=== PATIENT | male | born 1940 | race Caucasian/White ===

== ENCOUNTER → 2017-06-23 | Day surgery (SDC) | payer MEDICARE, OTHER ==
[~2017-06-23] VITALS: Ht 172.7 cm; Wt 84.1 kg
[~2017-06-23] MED LIST: Amiodarone 50 mg/mL 3 mL Inj IV SCH; Amiodarone 50 mg/mL 3 mL Inj ONE; Atropine 1 mg/10 mL (Code) Syringe ONE; DOPamine 800 mg/250 mL D5W Premix IV ONE; EPINEPHrine 0.1 mg/mL 10 mL Syringe ONE; Heparin 1,000 Unit/mL 10 mL Inj ONE; Heparin 1,000 Units/500 mL NS Premix IV ONE; Heparin 10,000 Unit/1,000 mL NS Premix IV ONE; Heparin 25,000 Unit/500 mL 0.45% NS Premix IV ONE; Heparin 25K Unit/500mL 0.45 NS 25,000 UNIT in IV Premix 1 EACH IV ONE; Lidocaine 2% 20 mg/mL 5 mL Cardiac Syringe IVPUSH ONE; Nitroglycerin 50,000 mcg/250 mL D5W Premix IV ONE; Norepinephrine 8,000 mCg/250 mL D5W Premix IV SCH; Ondansetron 2 mg/mL 2 mL Inj IVPUSH ONE; Phenylephrine/NS-PF 100 mCg/mL 5 mL Syringe IVPUSH ONE; Propofol 10 mg/mL 20 mL Inj IVPUSH ONE; fentaNYL-PF 50 mCg/mL 2 mL Inj ONE
[2017-06-23 16:54] VITALS: BP 113/70; PULSE 47; RESP 18; O2SAT 93
--- NOTE | 2017-06-23 16:59 | ED.REPORT ---
HPI-General Illness Date of Service Jun 23, 2017 ED Provider: Dr. Valiente The pt is a 77 y/o male with a hx of HTN and polio as a child who presents to the ED via EMS complaining of burning pain in the lower part of his chest that radiates to the upper part of his chest, onset an hour and a half ago. He currently rates the pain 1/10 in severity and states it improves when he burps. En route, the pt was given 600 of Plavix, bolus of heparin, sublingual nitroglycerin and aspirin. Pain was worse earlier, better after nitro. Pain does not radiate through to his back. Associated sx include generalized weakness and mild diaphoresis. He had also lost consciousness prior to arrival. He denies hitting his head. He also denies vision changes, headache, neck pain, unilateral weakness and numbness and hx of MA. No other complaints at this time. Nursing Notes Stated Complaint: STEMI Chief Complaint: Dysrhythmia/Cardiac Nursing Notes Reviewed: Yes Allergies: Coded Allergies: atenolol (Verified Allergy, Mild, rash, 06/23/17) General Time Seen by MD: 16:58 Chief Complaint Chest pain Hx Obtained From: Patient Arrived By: Ambulance Sudden in Onset?: Yes Onset Occurred: 1 - 4 hours ago Symptom Duration: Since onset Quality: Painful Severity: Current: Pain level 1 out of 10 Severity: Maximum: Moderate Recent Healthcare: No recent doctor visit Similar Sx Previous: No Past Medical History Past Medical History HTN polio as a child Past Surgical History none reported Family History Denies pertinent family history. Smoking History Former Smoker (quit 7 years ago) Social History Alcohol Use: "Social" Drug Use: Denies drug use Ambulatory Status Independent Review of Systems Denies: unilateral weakness and numbness Full Review of Systems Constitutional: Reports: Weakness - generalized, Denies: Fever Eyes: Denies: Blurred bilateral, Diplopia Ears / Nose / Throat: Denies: Throat swelling, Voice change Respiratory: Denies: Shortness of breath Cardiovascular: Reports: Chest pain GI: Denies: Abdominal pain Male: Denies Incontinence Musculoskeletal: Denies: Neck pain Skin: Reports Diaphoresis (mild) Allergy / Immune: Denies: Itching Neurologic: Reports: Change LOC, Denies: Headache, Vision change Psychiatric: Denies: Change mental status, Confusion Complete sys rev & neg: except as marked. Physical Exam Nursing note and vitals reviewed. Constitutional: Well-developed, well-nourished. Not diaphoretic. Head: Normocephalic and atraumatic. Mouth/Throat: Oropharynx is clear and moist. No oropharyngeal exudate. Eyes: EOM are normal. Pupils are equal, round, and reactive to light. Neck: Supple, no tracheal deviation. Cardiovascular: Bradycardia,regular rhythm. Equal and intact distal pulses throughout. Pulmonary/Chest: Effort normal and breath sounds normal. No respiratory distress. Abdominal: Soft. No distension. There is no tenderness, rebound, or guarding. Bowel sounds present. Musculoskeletal: Range of motion grossly intact, moving all extremities. No edema or tenderness appreciated. Neurological: AOx3. Grossly nonfocal exam. Strength and sensation intact and equal to bilateral upper and lower extremities. Right sided facial droop baseline per the pt's report. Skin: Warm and dry, no rashes or pallor appreciated. Psychiatric: Appropriate mood and affect. Behavior appears normal. Vital Signs Vital Signs Date Time Temp Pulse Resp B/P Pulse Ox O2 Delivery O2 Flow Rate FiO2 06/23/17 16:54 36.0 47 18 113/70 93 Room Air 5 Nasal Cannula Initial VS: Reviewed Interpretation & Diagnostics ECG Interpretation ECG Interpretation: Sinus bradycardia. [address]. Right bundle branch block. Acute inferior infarct. 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 DDx includes STEMI, NSTEMI, unstable angina, dysrhythmia, aortic dissection, PE , etc. EKG demonstrates sinus zoila, inferior STEMI. Currently not having any shortness of breath, no pleuritic symptoms. Doubt PE. CP not radiating through to back, not severe, no headache or unilateral weakness - dissection seems very unlikely. Did fall and would normally get head CT given age, though patient denies any symptoms at this time including headache, neck pain, confusion, vision change, vomiting, etc, as well as the fact that he needs to go to the lab coordinator emergently - I will defer imaging to the inpatient team for the time being. Labs and CXR ordered, pending at time of transfer to lab coordinator. Reviewed outside records. bean sprout laborer activated prior to patient's arrival and discussed w/ Dr. Quinones upon arrival to the ED. He received plavix, heparin bolus, aspirin, and NTG prior to arrival. I initiated a heparin drip. Plan to take to lab coordinator emergently. I discussed the above with the patient and the family at length. Time of Eval: 17:10 Re-Evaluation/Progress Note: Talked to the pt's family. Discussed the diagnosis and plan to admit. They understand and agree with the plan. All questions answered. Counseled Regarding: Diagnosis, Need for admission Discharge & Departure Primary Impression: STEMI (ST elevation myocardial infarction) Involved coronary artery: unspecified coronary artery Qualified Code: I21.3 - ST elevation (STEMI) myocardial infarction of unspecified site Disposition: ADMITTED TO HOSPITAL Discharge Condition All VS Reviewed: Yes Condition: Critical Crit Care Except Billable Proc Time Spent: 30-74 minutes Services Performed: Patient management by me, Time spent at bedside, Reviewing test results, Discussing patient care, Documentation in record, Time with fam/ surrogate Critical Care Notes: Please see MDM. I spent 35 minutes reviewing outside documentation, talking with consultants and the outside hospital, reviewing patient records, time spent at bedside, and discussing the findings with the patient and his family. Scribe Attestation Portions of this note were transcribed by Bill Pavon. I,, personally performed the history, physical exam and medical decision-making;I reviewed and confirmed the accuracy of the information in the transcribed note. Signed by Mary Cotto. 06/23/17 Nicholas Valiente MD Jun 23, 2017 16:58 Bill Pavon Jun 23, 2017 17:06
--- NOTE | 2017-06-23 18:08 | HP ---
[address] [address] HISTORY AND PHYSICAL PATIENT: IRAM LENTZ : 1940 MR#: [id number] ADMIT: 06/23/2017 JOB ID: [id number] DATE OF ADMISSION: 06/23/2017 CHIEF COMPLAINT: Passing out. HISTORY: The patient is a 77-year-old male with history of hypertension and prior smoking. He was in his usual state of health until today around 3:30 p.m. when he passed out. His family brought him to the emergency department at [facility]. EKG showed inferior ST-segment elevation. STEMI protocol was activated. The patient reports having chest discomfort in the upper chest area which he rated about 1/10. It did not radiate. It started before he passed out. It was associated with shortness of breath, nausea and diaphoresis. The patient continued to experience chest discomfort at the present time. PAST MEDICAL HISTORY: 1. Hypertension. 2. Polio as a child. CURRENT MEDICATIONS: 1. Blood pressure medicine. 2. Medication for his prostate. ALLERGIES: ATENOLOL caused rash. SOCIAL HISTORY: He lives in [place]. He visited his friend in this area. He used to smoke one pack per day for 40 years and quit smoking seven years ago. He drinks moderate amount of alcohol. He denies any drugs. FAMILY HISTORY: His son suffered a heart attack in his 50s. REVIEW OF SYSTEMS: Unobtainable due to urgency of clinical situation. PHYSICAL EXAMINATION: Reveals an elderly male appearing in no acute distress. Temperature is 36.1. Blood pressure is 66/43. Pulse 42. Skin is warm and dry. Head and face showed asymmetry of his mouth when he speaks. Neck supple. No jugular venous distention or carotid bruits. Chest: Normal expansion. Lungs are clear to auscultation. Heart: The first and second heart sounds are diminished. Grade 1/6 systolic ejection murmur at the left upper sternal border. Abdomen: Soft, nontender. Extremities: No clubbing, cyanosis, or edema. Neurologic: Grossly intact. EKG at 16:06 p.m. shows sinus bradycardia, rate [address]-segment elevation. BLOOD TESTS: From [facility] show hemoglobin 13.7, WBC 4.2, platelets 172, glucose 120, BUN 18, creatinine 1.0, potassium 4.0. IMPRESSION: 1. Acute inferior myocardial infarction. 2. Cardiogenic shock. 3. Sinus bradycardia. 4. History of hypertension. 5. History of 40-pack year smoking. PLAN: The patient will undergo emergent coronary angiogram and possible percutaneous coronary intervention. The risks and benefits of procedure have been explained to the patient. He understands and agrees to proceed with the procedure. FLORECITA
--- NOTE | 2017-06-23 18:24 | PCM.EDPN ---
ED Note Date of Service Jun 23, 2017 Procedures Intubation : Intubation Procedure: I was called to the bedside on this patient after they were in the cardiac catheterization lab. According to staff there, the patient was becoming increasingly hypotensive and with oxygen saturations into the high 80s. They requested intubation for anticipated clinical course, concern for acute hypoxic respiratory failure. This was performed as per below. The patient was preoxygenated with a nonrebreather mask to an oxygen saturation of 93%. Given his low pressures, after discussion with Dr. Quinones, we agreed that ketamine would be a good choice for RSI. Patient tolerated well, no complications. Of note, given that patient was intraprocedure, unable to get stat bedside CXR until after procedure complete. Discussed this and need for CXR w/ Dr. Quinones, who agreed. Procedure Performed by: ED physician Consent / Setup / Site Prep: No consent - emergent Patient Position: Sniff position Blade / ET Tube / Route: Brandywine scope Procedural Sedation/Analgesia: Sedation: Ketamine Neuromuscular Agent: Succinylcholine ET Confirmation: Direct visualization, BS equal, End tidal CO2 device, Rising O2 sat Secured / Marked: Tube marked at ___ cm (24), Tube marked at teeth Complications: None Post-Procedure: Condition improved, Tolerated procedure well Nicholas Valiente MD Jun 23, 2017 18:24
--- NOTE | 2017-06-23 19:17 | DI95 ---
[address] [address] INTERVENTIONAL CARDIAC CATHETERIZATION PATIENT: IRAM LENTZ : 1940 MR#: [id number] ADMIT: 06/23/2017 JOB ID: [id number] DATE OF PROCEDURE: 06/23/2017 PATIENT PROFILE: The patient is a 77 years old male who presented with syncope and acute inferior myocardial infarction. PROCEDURE: 1. Retrograde left heart catheterization. 2. Selective angiography. 3. Temporary transvenous pacer placement. 4. Intact balloon insertion. 5. Unsuccessful attempt angioplasty to the occluded proximal right coronary artery. 6. Vascular closure device: None. COMPLICATIONS: None. METHOD: Retrograde left heart catheterization was performed from the right groin under 1% lidocaine local anesthesia using a 6-Bermudian sheath. The patient's oxygen saturation is in the low 80s. The patient was then intubated by Dr. Valiente. The patient was started on intravenous dopamine. One amp of epinephrine was given. A 5-Bermudian venous sheath was placed in the right groin. A 5-Bermudian temporary transvenous pacer was then placed in the right ventricle. The patient was then paced at 80 beats per minute with an MA of 10 in asynchronous mode. Heparin 9000 units were given. Selective angiogram was performed in multiple projections, including cranial and caudal angulation with hand injected contrast via JL4 and JR4 catheter. An attempt to cross the occluded proximal right coronary artery lesion with a runthrough and a Choice PT wire was unsuccessful. A whisper wire was not able to cross the lesion. However an attempt to advance the 2.0 x 15 mm balloon to the lesion was unsuccessful. This balloon was unable to cross the lesion. The procedure was terminated. A 40 cc intra-aortic balloon was inserted from the right groin. This was placed under fluoroscopy. The patient was transferred to [facility] for further management. RESULTS: 1. Selective angiogram. a. Left main coronary artery is very short. b. The left anterior descending artery does not reach the apex and has moderate calcification with 40% stenosis. INCOMPLETE: Dictation ends here. 1. a.
--- NOTE | 2017-06-23 19:35 | DIS ---
[address] [address] DISCHARGE SUMMARY PATIENT: IRAM LENTZ : 1940 MR#: [id number] ADMIT: 06/23/2017 JOB ID: [id number] DIS: ADMITTING DIAGNOSES: 1. Syncope. 2. Acute inferior myocardial infarction. DISCHARGE DIAGNOSES: 1. Syncope. 2. Acute inferior myocardial infarction. SECONDARY DIAGNOSES: 1. Cardiogenic shock. 2. History of 40 pack year smoking. 3. History of hypertension. PROCEDURE: 1. Selective coronary angiogram. 2. Intubation. 3. Temporary transvenous pacer placement. 4. Intact balloon insertion. 5. Unsuccessful attempted angioplasty to the occluded proximal right coronary artery. 6. CPR. HISTORY: The patient is a 77-year-old male with history of hypertension and 40 pack year smoking. He had a syncopal episode around 3:30 p.m. He was brought to [facility] with acute inferior myocardial infarction. The patient was transferred to [facility]. The patient was found to be in cardiogenic shock. After he arrived in the laborer plumbing, the patient was intubated, temporary transvenous pacer was placed due to profound bradycardia and intraaortic balloon was inserted due to cardiogenic shock. Coronary angiogram identified moderate disease of the left anterior descending and circumflex artery with occluded proximal right coronary artery. An attempt at angioplasty was unsuccessful. While he was in the process of transfer to [facility], the patient developed ventricular fibrillation. CPR was performed with multiple defibrillations, intravenous amiodarone and intravenous lidocaine. However, the patient went into asystole. He was pronounced at 18:57 p.m.
--- NOTE | 2017-06-23 19:46 | OP ---
[address] [address] OPERATIVE REPORT PATIENT: IRAM LENTZ : 1940 MR#: [id number] ADMIT: 06/23/2017 JOB ID: [id number] DATE OF SURGERY: 06/23/2017 SURGEON: PREOPERATIVE DIAGNOSIS(ES): POSTOPERATIVE DIAGNOSIS(ES): PATIENT PROFILE: The patient is a 77 years old male, who presented with syncope, acute inferior myocardial infarction and cardiogenic shock. After the coronary angiogram while he was in the process of transferring to [facility], the patient developed ventricular tachycardia and ventricular fibrillation. Multiple defibrillations were performed with multiple bolus dose of amiodarone and lidocaine were given. CPR was performed. However, the patient could not survive. He was at 1857 p.m.
== END | disposition expired ==
LOC: EDBD 16:39 → SED 16:54 → SPI 17:14
PROVIDERS: ATTEND Internal Medicine Interventional Cardiology
DX: I21.19 ST elevation (STEMI) myocardial infarction involving other coronary artery of inferior wall (principal); I49.01 Ventricular fibrillation; R57.0 Cardiogenic shock; I10 Essential (primary) hypertension; I25.10 Atherosclerotic heart disease of native coronary artery without angina pectoris; Z86.12 Personal history of poliomyelitis; Z87.891 Personal history of nicotine dependence; Z82.49 Family history of ischemic heart disease and other diseases of the circulatory system
CPT/HCPCS: 31500; 33967; 92941; 92950; 93005; 93454; 94002; 94799; 96374; 96375; 99152; 99153; 99291; C1725; C1769; C1887; J0171; J0282; J0461; J1265; J1644; J2250; J2370; J2405; J3010